=== PATIENT | male | born 1960 | race Two or more races ===

== ENCOUNTER 2020-11-21 16:10 | Emergency (ER) | payer SELFPAY ==
[~2020-11-21] VITALS: Ht 190.5 cm; Wt 85.7 kg
[2020-11-21] MEDS ORDERED: TETANUS-DIPTH-ACEL PERTUSSIS 0.5ML SYR Tdap IM ONE (22:45)
[2020-11-21] MEDS ORDERED: cefTRIAXone 1GM/50ML D5W 50 ML IV ONE (22:45)
[2020-11-21] MEDS ORDERED: CLINDAMYCIN 600MG IV 50 ML IV ONE (23:00)
[2020-11-22 00:55] VITALS: BP 131/92
== END 2020-11-22 01:00 | disposition home or self-care (01) ==
LOC: ER 16:10
DX: S61.250A Open bite of right index finger without damage to nail, initial encounter (principal); E11.9 Type 2 diabetes mellitus without complications; I10 Essential (primary) hypertension; W64.XXXA Exposure to other animate mechanical forces, initial encounter; Y93.89 Activity, other specified; Y92.89 Other specified places as the place of occurrence of the external cause; Y99.8 Other external cause status
CPT/HCPCS: 90471; 90715; 96365; 96367; 99284; J0696; J3490

== ENCOUNTER 2020-12-12 14:42 | Emergency (ER) | payer OTHER ==
[~2020-12-12] VITALS: Ht 190.5 cm; Wt 83.9 kg
[2020-12-12 18:51] VITALS: BP 105/80
== END 2020-12-12 22:13 | disposition home or self-care (01) ==
LOC: ER 14:42
DX: S61.200D Unspecified open wound of right index finger without damage to nail, subsequent encounter (principal); L03.011 Cellulitis of right finger; E11.9 Type 2 diabetes mellitus without complications; I10 Essential (primary) hypertension; W55.01XD Bitten by cat, subsequent encounter
CPT/HCPCS: 73200